=== PATIENT | male | born 1975 | race Caucasian/White ===

== ENCOUNTER 2021-05-20 02:08 | Emergency (ER) | payer MEDICARE, OTHER ==
[~2021-05-20 02:08] MED LIST: AUGMENTIN 875-1 EACH PO; PEPCID20 MG PO; PROTONIX40 MG PO
[2021-05-20 03:03] LABS: HEMOGLOBIN 15.7 gm/dl (14.0-17.5); RED BLOOD COUNT 5.13 M/UL (4.20-5.50); WHITE BLOOD COUNT 7.2 K/UL (4.5-11.0)
[2021-05-20 03:27] LABS: BUN/CREATININE RATIO 12 (0-10)
[2021-05-20] MEDS ORDERED: IBUPROFEN600 MG PO (06:04)
[2021-05-20] MEDS ORDERED: ZOFRAN ODT 4 MG4 MG PO (06:04)
[2021-05-20] MEDS ORDERED: BENTYL 20MG TAB20 MG PO (06:04)
== END 2021-05-20 06:15 | disposition home or self-care (01) ==
LOC: ER1 02:08
PROVIDERS: Family Medicine
DX: K40.20 Bilateral inguinal hernia, without obstruction or gangrene, not specified as recurrent (principal); R11.0 Nausea
CPT/HCPCS: 80053; 81001; 83690; 85025; 96374; 96375; 99284; J1885; J2405; Q9967

== ENCOUNTER → 2021-07-15 | Day surgery (SDC) | payer MEDICARE, OTHER ==
[~2021-07-15] MED LIST changes: +BENTYL 20MG TAB20 MG PO; +CLARITIN10 MG PO; +FLONASE ALLER15.8 ML; +GABAPENTIN600 MG PO; +HYDROCODON-ACE1 EAC6 PO; +IBUPROFEN600 MG PO; +ZOFRAN ODT 4 MG4 MG PO
== END | disposition home or self-care (01) ==
LOC: OR 06:47
DX: R10.32 Left lower quadrant pain (principal); K29.50 Unspecified chronic gastritis without bleeding; K21.00 Gastro-esophageal reflux disease with esophagitis, without bleeding; K63.5 Polyp of colon; K29.80 Duodenitis without bleeding
CPT/HCPCS: J2704; J3010; J7030

== ENCOUNTER → 2021-09-14 | Day surgery (SDC) | payer MEDICARE, OTHER ==
[~2021-09-14] MED LIST changes: +DIPHENHYDRAMINE25 M1 PO; +GOODY'S EX-STR1 EACH PO; +IBUPROFEN800 MG PO; +PROPRANOLOL HCL20 MG PO
== END | disposition home or self-care (01) ==
LOC: OR 07:30
DX: K40.20 Bilateral inguinal hernia, without obstruction or gangrene, not specified as recurrent (principal); K21.9 Gastro-esophageal reflux disease without esophagitis; Z79.82 Long term (current) use of aspirin; Z79.899 Other long term (current) drug therapy
CPT/HCPCS: C1781; J0690; J1170; J2001; J2250; J2405; J2704; J3010